=== PATIENT | male | born 2000 | race Two or more races ===

== ENCOUNTER 2020-11-28 13:38 | Emergency (ER) | payer OTHER ==
[2020-11-28 13:43] VITALS: BP 132/54; PULSE 69; TEMP 97.8; BMI 29.5
[2020-11-28] MEDS ORDERED: SILVER SULFADIAZINE 1% TOP CREAM 50 GM JAR TP ONE ×2 (14:09→14:10)
[2020-11-28] MEDS ORDERED: DIPHTH,PERTUSS(ACELL),TET 0.5 ML DISP.SYRIN IM ONE ×2 (14:09→14:11)
== END 2020-11-28 14:25 | disposition home or self-care (01) ==
LOC: JERFT 13:38
PROC: 3E0234Z Introduction of Serum, Toxoid and Vaccine into Muscle, Percutaneous Approach (ICD-10-PCS; principal; 2020-11-28)
DX: T23.102A Burn of first degree of left hand, unspecified site, initial encounter (principal)
CPT/HCPCS: 90471; 90715; 99284-25